=== PATIENT | female | born 1990 | race Caucasian/White ===

== ENCOUNTER 2016-09-16 09:51 | Emergency (ER) | payer OTHER ==
[2016-09-16 10:14] VITALS: BP 118/65; PULSE 77; TEMP 98; BMI 24.7
--- NOTE | 2016-09-16 10:27 | PDOC ---
History of Present Illness - General Chief Complaint: Urinary Problem Stated Complaint: PAIN Time Seen by Provider: 09/16/16 10:25 History Source: Patient Exam Limitations: No Limitations - History of Present Illness Travel History: No Initial Comments: 09/16/16 10:27 Patient came for evaluation of pain and burning with urine 3 days Timing/Duration: reports: getting worse Quality: reports: mild, moderate, aching Abdominal Pain Onset Location: reports: suprapubic Aggravating Factors: improves with: None Past History - Travel Traveled outside of the country in the last 30 days: No Close contact w/someone who was outside of country & ill: No - Past Medical History Allergies/Adverse Reactions: Allergies Allergy/AdvReac Type Severity Reaction Status Date / Time No Known Allergies Allergy Verified 09/16/16 10:10 Home Medications: Ambulatory Orders Nitrofurantoin Macrocrystal [Macrodantin -] 100 mg PO BID #14 capsule 09/16/16 Other medical history: DENIES. - Psycho/Social/Smoking Cessation Hx Anxiety: No Suicidal Ideation: No Smoking Status: No Smoking History: Current every day smoker Have you smoked in the past 12 months: Yes Number of Cigarettes Smoked Daily: 10 Information on smoking cessation initiated: No Hx Alcohol Use: No Drug/Substance Use Hx: No Substance Use Type: None Review of Systems - Review of Systems Able to Perform ROS?: Yes Is the patient limited Montenegrin proficient: Yes Constitutional: Yes: Symptoms Reported, See HPI, Malaise HEENTM: Yes: See HPI. No: Symptoms Reported Respiratory: No: Symptoms reported : Yes: Symptoms Reported, See HPI, Burning, Dysuria, Frequency Musculoskeletal: No: Symptoms Reported Integumentary: No: Symptoms Reported All Other Systems: Reviewed and Negative *Physical Exam - Vital Signs Last Vital Signs Temp Pulse Resp BP Pulse Ox 98 F 77 19 118/65 99 09/16/16 10:11 09/16/16 10:11 09/16/16 10:11 09/16/16 10:11 09/16/16 10:11 - Physical Exam General Appearance: Yes: Nourished, Appropriately Dressed, Apparent Distress HEENT: positive: JESSICA, Normal ENT Inspection, TMs Normal, Pharynx Normal Neck: positive: Supple. negative: Lymphadenopathy (R), Lymphadenopathy (L) Respiratory/Chest: positive: Lungs Clear, Normal Breath Sounds Gastrointestinal/Abdominal: positive: Tender, Soft, Distended. 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 NML intact, Fully Oriented, Alert, Normal Mood/ Affect, Normal Response, Motor Strength 5/5 *DC/Admit/Observation/Transfer Diagnosis at time of Disposition: UTI (urinary tract infection) Qualifiers: Urinary tract infection type: acute cystitis Hematuria presence: without hematuria Qualified Code(s): N30.00 - Acute cystitis without hematuria - Discharge Dispostion Disposition: HOME Condition at time of disposition: Stable Admit: No - Prescriptions Prescriptions: Nitrofurantoin Macrocrystal [Macrodantin -] 100 mg PO BID #14 capsule - Referrals Referrals: Sydni Segura MD [Primary Care Provider] - - Patient Instructions Printed Discharge Instructions: DI for Urinary Tract Infection (UTI) Additional Instructions: Rest, drink lots of fluids: Teas, water, soups Avoid contact with others until fevers and symptoms resolved Lots of handwashing and good hygiene Continue [id number] medications for symptomatic relief Tylenol or Motrin for fever and pain Continue all of antibiotics until completed Followup with private physician in one week for repeat urinalysis/reevaluation Return to emergency department for worsened symptoms, fevers, dehydration - Post Discharge Activity Work/School Note: Back to Work
[2016-09-16 10:47] LABS: URINE APPEARANCE SLCLOUDY; URINE BILIRUBIN NEGATIVE (NEGATIVE); URINE COLOR LTYELLOW; URINE GLUCOSE (UA) NEGATIVE (NEGATIVE); URINE KETONE NEGATIVE (NEGATIVE); URINE NITRITE NEGATIVE (NEGATIVE); URINE PROTEIN NEGATIVE (NEGATIVE); URINE UROBILINOGEN NEGATIVE E.U./dl (0.2-1.0)
[2016-09-16 10:49] LABS: URINE BLOOD 2+ (NEGATIVE); URINE LEUK ESTERASE 2+ (NEGATIVE)
[2016-09-16 10:58] LABS: URINE BACTERIA RARE /hpf (NONE SEEN); URINE MUCUS RARE; URINE RBC 4 /hpf (0-3); URINE WBC 92 /hpf (3-5)
[2016-09-16] MEDS ORDERED: NITROFURANTOIN MACROCRYSTAL 50 MG CAPSULE (FP) ONE (11:00)
[2016-09-16] MEDS ORDERED: NITROFURANTOIN MACROCRYSTAL 50 MG CAPSULE (FP) PO SCH (11:00)
== END 2016-09-16 11:03 | disposition home or self-care (01) ==
LOC: EDBD → JERFT 09:51
DX: N30.00 Acute cystitis without hematuria (principal); F17.210 Nicotine dependence, cigarettes, uncomplicated
CPT/HCPCS: 81003; 81015; 84703; 87086; 87186; 99281-25

== ENCOUNTER 2016-10-30 12:12 | Day surgery (SDC) | payer OTHER ==
[2016-10-27 14:58] VITALS: BMI 23.0
[2016-10-30] MEDS ORDERED: BUPIVACAINE HCL/PF 0.5% (5MG/ML) 10 ML VIAL ONE (13:18)
[2016-10-30] MEDS ORDERED: ROCURONIUM BROMIDE 50 MG/5 ML VIAL ONE (13:43)
[2016-10-30] MEDS ORDERED: DEXAMETHASONE SOD PHOSPHATE 4 MG/1 ML VIAL ONE ×2 (13:43→14:19)
[2016-10-30] MEDS ORDERED: LIDOCAINE HCL 2% JELLY (5 ML/TUBE) ONE (13:43)
[2016-10-30] MEDS ORDERED: MIDAZOLAM HCL 2 MG/2 ML SINGLE DOSE VIAL ONE (13:43)
[2016-10-30] MEDS ORDERED: LIDOCAINE HCL/PF 2% SDV 5ML VIAL ONE (13:43)
[2016-10-30] MEDS ORDERED: ONDANSETRON 4 MG/2 ML VIAL ONE (13:43)
[2016-10-30] MEDS ORDERED: ELECTROLYTE-148 SOLN 1,000 ML IV SCH (14:15)
[2016-10-30] MEDS ORDERED: IBUPROFEN 800 MG/8 ML IJ IVPB PRN (14:15)
[2016-10-30] MEDS ORDERED: oxyCODONE HCL 5 MG TABLET PO PRN (14:15)
[2016-10-30] MEDS ORDERED: IBUPROFEN 600 MG TABLET (FP) PO PRN (14:15)
[2016-10-30] MEDS ORDERED: ONDANSETRON 4 MG/2 ML VIAL IVPB PRN (14:15)
--- NOTE | 2016-10-30 14:15 | HP ---
Past Medical History - Primary Care Physician PCP:: Partha Otoole - Admission Chief Complaint: voluntary sterlization History of Present Illness: 26 yo f with 2 previous c/s requesting repeat c/s ,rba discussed , aware risk of ectopic and failure risk History Source: Patient Limitations to Obtaining History: No Limitations - Past Medical History ...: 2 ...Para: 2 - Past Surgical History Past Surgical History: Yes: Hx Myomectomy: No Hx Transabdominal Cerclage: No - Smoking History Smoking history: Current every day smoker Have you smoked in the past 12 months: Yes Aproximately how many cigarettes per day: 10 - Alcohol/Substance Use Hx Alcohol Use: No - Social History History of Recent Travel: No Home Medications - Allergies Allergies/Adverse Reactions: Allergies Allergy/AdvReac Type Severity Reaction Status Date / Time No Known Allergies Allergy Verified 10/27/16 14:59 - Home Medications Home Medications: Ambulatory Orders No Known Home Medication 1 tab PO ONCE 10/27/16 Review of Systems - Review of Systems Constitutional: reports: No Symptoms Eyes: reports: No Symptoms HENT: reports: No Symptoms Neck: reports: No Symptoms Cardiovascular: reports: No Symptoms Respiratory: reports: No Symptoms Gastrointestinal: reports: No Symptoms Genitourinary: reports: No Symptoms Breasts: reports: No Symptoms Reported Musculoskeletal: reports: No Symptoms Integumentary: reports: No Symptoms Neurological: reports: No Symptoms Endocrine: reports: No Symptoms Hematology/Lymphatic: reports: No Symptoms Psychiatric: reports: No Symptoms 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: Vital Signs Temperature Pulse Rate 68 10/30/16 13:06 Respiratory Rate 18 10/30/16 13:06 Blood Pressure 108/70 10/30/16 13:06 O2 Sat by Pulse Oximetry (%) 100 10/30/16 13:06 Constitutional: Yes: Well Nourished, No Distress, Calm Eyes: Yes: WNL, Conjunctiva Clear, EOM Intact HENT: Yes: WNL, Atraumatic, Normocephalic Neck: Yes: WNL, Supple, Trachea Midline Cardiovascular: Yes: WNL, Regular Rate and Rhythm Respiratory: Yes: WNL, Regular, CTA Bilaterally Gastrointestinal: Yes: WNL ...Rectal Exam: Yes: WNL Renal/: Yes: WNL Pelvis: Yes: WNL External Genitalia: Yes: Normal Internal Exam Deferred: No Vaginal Exam: Yes: Normal Cervix: Yes: Normal Adnexa: Not Palpable: Left, Right Breast(s): Yes: WNL Musculoskeletal: Yes: WNL Extremities: Yes: WNL Edema: No Integumentary: Yes: WNL Neurological: Yes: WNL, Alert, Oriented ...Motor Strength: WNL Psychiatric: Yes: WNL, Alert, Oriented Problem List - Problem (1) Sterilization Code(s): Z30.2 - ENCOUNTER FOR STERILIZATION Assessment/Plan laparoscopy tubal ligation ,possible laparotomy
[2016-10-30] MEDS ORDERED: ALBUTEROL SO4 6.7 GM HFA INHALER IH ONE (14:19)
[2016-10-30] MEDS ORDERED: NEOSTIGMINE METHYLSULFATE 0.5 MG/ML - 10 ML MDV ONE (14:36)
[2016-10-30] MEDS ORDERED: GLYCOPYRROLATE 0.2 MG/1 ML VIAL ONE (14:36)
[2016-10-30] MEDS ORDERED: LACTATED RINGERS SOLUTION 1,000 ML IV SCH (15:00)
[2016-10-30] MEDS ORDERED: KETOROLAC TROMETHAMINE 30 MG/1 ML VIAL IVPUSH PRN (15:01)
[2016-10-30] MEDS ORDERED: ALBUTEROL SO4 2.5/IPRATROPIUM 0.5 INH SOL 3 ML VIAL.NEB. NEB PRN (15:02)
[2016-10-30 17:02] VITALS: TEMP 98.1
--- NOTE | 2016-10-30 17:02 | CONSULT ---
Consultation: REQUESTING PROVIDER: CONSULT REQUEST: We have been asked to medically evaluate this patient for wheezing. HISTORY OF PRESENT ILLNESS: This is a 26-year-old woman who came in today for a bilateral tubal ligation. Post-op, while in the recovery room, she was noted to be wheezing. She says she felt short of breath, but after DuoNeb and use of an incentive spirometer, she is feeling better. She denies chest pain, palpitations , abdominal pain, nausea. She denies history of asthma. O2 saturation is 94-95% on room air. PAST MEDICAL HISTORY Denies PAST SURGICAL HISTORY x 2 ALLERGIES 3 Allergy/AdvReac Type Severity Reaction Status Date / Time No Known Allergies Allergy Verified 10/27/16 14:59 HOME MEDICATIONS 3 Medication Instructions Recorded No Known Home Medication 1 tab PO ONCE 10/27/16 Ibuprofen [Motrin -] 600 mg PO QID #28 tablet 10/30/16 REVIEW OF SYSTEMS: CONSTITUTIONAL: Absent: fever, chills, diaphoresis, generalized weakness, malaise, loss of appetite, weight change HEENT: Absent: rhinorrhea, nasal congestion, throat pain, throat swelling, difficulty swallowing, mouth swelling, ear pain, eye pain, visual changes CARDIOVASCULAR: Absent: chest pain, syncope, palpitations, lightheadedness, peripheral edema RESPIRATORY: Present: shortness of breath, wheezing. Absent: cough, dyspnea with exertion, orthopnea, stridor, hemoptysis GASTROINTESTINAL: Absent: abdominal pain, abdominal distension, nausea, vomiting , diarrhea, constipation, melena, hematochezia GENITOURINARY: Absent: dysuria, frequency, urgency, hesitancy, hematuria, flank pain MUSCULOSKELETAL: Absent: myalgia, arthralgia, joint swelling, back pain, neck pain SKIN: Absent: rash, itching, pallor HEMATOLOGIC/IMMUNOLOGIC: Absent: easy bleeding, easy bruising, lymphadenopathy, frequent infections ENDOCRINE: Absent: unexplained weight gain, unexplained weight loss, heat intolerance, cold intolerance NEUROLOGIC: Absent: headache, focal weakness or paresthesias, dizziness, unsteady gait, seizure, mental status changes, bladder or bowel incontinence PSYCHIATRIC: Absent: anxiety, depression, suicidal or homicidal ideation, hallucinations. PHYSICAL EXAMINATION Vital Signs - 24 hr 10/30/16 13:06 Pulse Rate 68 Respiratory 18 Rate Blood Pressure 108/70 O2 Sat by Pulse 100 Oximetry (%) GENERAL: Awake, alert, and fully oriented, in no acute distress. HEAD: Normal with no signs of trauma. EYES: Pupils equal, round and reactive to light, extraocular movements intact, sclerae anicteric, conjunctivae clear. EARS, NOSE, THROAT: Ears normal, nares patent, oropharynx clear without exudates. Moist mucous membranes. NECK: Normal range of motion, supple without lymphadenopathy, JVD, or masses. LUNGS: Breath sounds equal, scattered expiratory wheezes bilaterally. No accessory muscle use. HEART: Regular rate and rhythm, normal S1 and S2 without murmur, rub or gallop. ABDOMEN: Soft, nontender, not distended, normoactive bowel sounds, no guarding, no rebound, no masses. No hepatomegaly or splenomegaly. MUSCULOSKELETAL: Normal range of motion at all joints. No bony deformities or tenderness. No CVA tenderness. UPPER EXTREMITIES: 2+ pulses, warm, well-perfused. No cyanosis. No clubbing. Cap refill <2 seconds. No peripheral edema. LOWER EXTREMITIES: 2+ pulses, warm, well-perfused. No calf tenderness. No peripheral edema. NEUROLOGICAL: Cranial nerves II-XII intact. Normal speech. Gait not observed. PSYCHIATRIC: Cooperative. Good eye contact. Appropriate mood and affect. SKIN: Warm, dry, normal turgor, no rashes or lesions noted. Laboratory Results - last 24 hr 10/30/16 12:30 Urine HCG, Qual Negative Active Medications Generic Name Dose Route Start Last Admin Trade Name Freq PRN Reason Stop Dose Admin Albuterol/Ipratropium 1 amp 10/30/16 15:02 10/30/16 15:00 Duoneb - NEB 1 amp Q4H PRN Administration SHORTNESS OF BREATH Fentanyl 25 mcg 10/30/16 15:00 10/30/16 15:10 Sublimaze Injection - IVPUSH 11/02/16 15:01 25 mcg [id number] PRN Administration PAIN Parenteral Electrolytes 1,000 mls @ 125 mls/hr 10/30/16 14:15 Plasma-Lyte 148 - IV ASDIR ANDERSON Lactated Ringer's 1,000 mls @ 125 mls/hr 10/30/16 15:00 Lactated Ringers Solution IV ASDIR ANDERSON Ibuprofen 600 mg 10/30/16 14:15 Motrin - PO Q6H PRN FEVER Ibuprofen 800 mg 10/30/16 14:15 Caldolor Injection - IVPB Q6H PRN PAIN Ketorolac Tromethamine 30 mg 10/30/16 15:01 10/30/16 15:24 Toradol Injection - IVPUSH 10/30/16 20:00 30 mg ONCE PRN Administration PAIN Ondansetron HCl 4 mg 10/30/16 14:15 Zofran Injection IVPB Q6H PRN NAUSEA Oxycodone HCl 5 mg 10/30/16 14:15 Roxicodone - PO Q4H PRN PAIN ASSESSMENT/PLAN: This is a 26-year-old woman with no significant past medical history who developed wheezing and shortness of breath post-op after bilateral tubal ligation. 1. Shortness of breath, wheezing post-op - Probable bronchospasm - CXR shows LLL atelectasis - Feels better after DuoNeb - Continue incentive spirometer - OK for discharge - return to ER for fever, shortness of breath, increased wheezing
[2016-10-30] MEDS ORDERED: oxyCODONE HCL 5 MG TABLET ONE (17:55)
[2016-10-30 18:49] VITALS: BP 118/70; PULSE 100
--- NOTE | 2016-10-31 18:44 | OP ---
DATE OF OPERATION: 10/30/2016 PREOPERATIVE DIAGNOSIS: Voluntary sterilization. POSTOPERATIVE DIAGNOSIS: Voluntary sterilization. PROCEDURE: Laparoscopic bilateral tubal cauterization. SURGEON: Partha Otoole M.D. ANESTHESIA: General. ESTIMATED BLOOD LOSS: 10 mL. DESCRIPTION OF PROCEDURE: Patient was taken to operating room where with adequate general anesthesia, examination under anesthesia revealed external genitalia to be normal, vagina was normal, cervix was clean, uterus normal size, adnexa no masses palpable. Then with the weighted speculum in the vagina, anterior lip of cervix was grasped with a single hook tenaculum, and Hulka was introduced into the uterine cavity for manipulation. Then Diaz was inserted. Abdomen was prepped and draped. In dorsal lithotomy position small incision was made through the umbilical area, Veress needle was introduced, pneumoperitoneum established, and then a 5-mm trocar was introduced through the umbilical area, and then the scope was introduced. Under direct vision, a 5-mm trocar was introduced through the suprapubic area. There were some omental adhesions to the anterior abdominal wall. Uterus was normal, both ovaries were normal, both tubes were normal. Upper abdomen was checked, no other abnormalities were seen. Then with the bipolar cautery, right tube was cauterized in 3 portions 2 cm apart, the same procedure repeated for opposite tube. Visualization of both tubes showed adequate cauterization and no bleeding. Then abdomen was emptied of all the gases, instruments withdrawn, and suprapubic and infraumbilical incisions were closed with interrupted suture of 3-0 Biosyn. Patient tolerated procedure well, left the OR in good condition. PARTHA OTOOLE M.D. [id number]
== END 2016-10-30 18:45 | disposition home or self-care (01) ==
LOC: EDBD → JASU-SURG 12:12
PROVIDERS: ATTEND Obstetrics & Gynecology
PROC: 0U574ZZ Destruction of Bilateral Fallopian Tubes, Percutaneous Endoscopic Approach (ICD-10-PCS; principal; 2016-10-30 14:00)
DX: Z30.2 Encounter for sterilization (principal); R06.02 Shortness of breath; R06.2 Wheezing
CPT/HCPCS: 71010-TC; 84703; 94760

== ENCOUNTER 2018-10-03 14:55 | Emergency (ER) | payer OTHER ==
[2018-10-03 15:11] VITALS: BP 124/72; PULSE 76; TEMP 97.9; BMI 25.8
--- NOTE | 2018-10-03 15:59 | PDOC ---
History of Present Illness - General Chief Complaint: Sore Throat Stated Complaint: SORE THROAT Time Seen by Provider: 10/03/18 15:17 History Source: Patient Exam Limitations: Clinical Condition - History of Present Illness Initial Comments: 10/03/18 15:55 Patient with no significant past medical history present with complaint of three -day history of sore throat and dry mouth. Patient denies fever, chills, cough, body aches. Patient endorses nasal congestion. Denies any other symptoms Timing/Duration: other (3 days) Past History - Past Medical History Allergies/Adverse Reactions: Allergies Allergy/AdvReac Type Severity Reaction Status Date / Time No Known Allergies Allergy Verified 10/03/18 15:11 Home Medications: Ambulatory Orders Ipratropium [place] 2 spray NS BID PRN #1 spray 10/03/18 Methylprednisolone [Medrol Dose Edson] 4 mg PO ASDIR #21 tablet 10/03/18 Anemia: No Asthma: No Cancer: No Cardiac Disorders: No CVA: No COPD: No CHF: No Dementia: No Diabetes: No GI Disorders: No Disorders: No HTN: No Hypercholesterolemia: No Liver Disease: No Seizures: No Thyroid Disease: No - Suicide/Smoking/Psychosocial Hx Smoking Status: No Smoking History: Never smoked Have you smoked in the past 12 months: Yes Number of Cigarettes Smoked Daily: 10 'Breaking Loose' booklet given: 10/30/16 Hx Alcohol Use: No Drug/Substance Use Hx: No Substance Use Type: None Hx Substance Use Treatment: No Review of Systems - Review of Systems Able to Perform ROS?: Yes Is the patient limited Mongolian proficient: No Constitutional: No: Chills, Fever, Malaise HEENTM: Yes: Symptoms Reported, See HPI, Nose Congestion, Throat Pain. No: Eye Pain, Blurred Vision, Tearing, Recent change in vision, Double Vision, Cataracts , Ear Pain, Ocular Prothesis, Ear Discharge, Nose Pain, Tinnitus, Nose Bleeding , Hearing Loss, Throat Swelling, Mouth Pain, Dental Problems, Difficulty Swallowing, Mouth Swelling, Other Respiratory: No: Symptoms reported, See HPI, Cough, Orthopnea, Shortness of Breath, SOB with Exertion, SOB at Rest, Stridor, Wheezing, Productive cough, Hemoptysis, Other Cardiac (ROS): No: Symptoms Reported, See HPI, Chest Pain, Edema, Irregular Heart Rate, Lightheadedness, Palpitations, Syncope, Chest Tightness, Other ABD/GI: No: Constipated, Diarrhea, Nausea, Vomiting, Abdominal cramping All Other Systems: Reviewed and Negative *Physical Exam - Vital Signs Last Vital Signs Temp Pulse Resp BP Pulse Ox 97.9 F 76 18 124/72 99 10/03/18 15:08 10/03/18 15:08 10/03/18 15:08 10/03/18 15:08 10/03/18 15:08 - Physical Exam Comments: 10/03/18 15:56 GENERAL: Well developed, well nourished. Awake and alert. No acute distress. HEENT: Normocephalic, atraumatic. PERRLA, EOMI. No conjunctival pallor. Sclera are non-icteric. Moist mucous membranes. Oropharynx is clear. NECK: Supple. Full ROM. CARDIOVASCULAR: Regular rate and rhythm. No murmurs, rubs, or gallops. Distal pulses are 2+ and symmetric. PULMONARY: No evidence of respiratory distress. Lungs clear to auscultation bilaterally. No wheezing, rales or rhonchi. ABDOMINAL: Soft. Non-tender. Non-distended. No rebound or guarding. No organomegaly. Normoactive bowel sounds. MUSCULOSKELETAL Normal range of motion at all joints. EXTREMITIES: No cyanosis. No clubbing. No edema. SKIN: Warm and dry. Normal capillary refill. No rashes. No jaundice. NEUROLOGICAL: Alert, awake, appropriate. Gait is normal without ataxia. PSYCHIATRIC: Cooperative. Good eye contact. Appropriate mood General Appearance: Yes: Nourished, Appropriately Dressed. No: Apparent Distress Moderate Sedation - Procedure Monitoring Vital Signs: Procedure Monitoring Vital Signs Temperature 97.9 F 10/03/18 15:08 Pulse Rate 76 10/03/18 15:08 Respiratory Rate 18 10/03/18 15:08 Blood Pressure 124/72 10/03/18 15:08 O2 Sat by Pulse Oximetry (%) 99 10/03/18 15:08 Medical Decision Making - Medical Decision Making 10/03/18 15:58 Patient with no significant past medical history present with complaint of three -day history of sore throat and dry mouth with no other symptoms. No pharyngeal erythema or any exam. mild left anterior cervical lymphadenitis. Symptoms likely pharyngitis from postnasal drip. Rapid strep test ordered to rule out strep pharyngitis. Patient will be treated with symptomatic management if negative strep 10/03/18 16:16 rapid strep negative. Patient stable for discharge with symptomatic management and ENT follow-up *DC/Admit/Observation/Transfer Diagnosis at time of Disposition: Lymphadenitis Pharyngitis Qualifiers: Pharyngitis/tonsillitis etiology: unspecified etiology Qualified Code(s): J02.9 - Acute pharyngitis, unspecified - Discharge Dispostion Disposition: HOME Condition at time of disposition: Stable Decision to Admit order: No - Prescriptions Prescriptions: Ipratropium [place] 2 spray NS BID PRN #1 spray PRN Reason: nasal congestion Methylprednisolone [Medrol Dose Edson] 4 mg PO ASDIR #21 tablet - Referrals Referrals: Israel Handy MD [Staff Physician] - - Patient Instructions Printed Discharge Instructions: DI for Pharyngitis/Tonsillopharyngitis -- Adult Additional Instructions: Your strep test was negative. Take medication as prescribed. Increase fluid intake. Follow-up referred ENT if symptoms persist for more than 4 days. - Post Discharge Activity
== END 2018-10-03 16:16 | disposition home or self-care (01) ==
LOC: JERFT 14:55
DX: J02.9 Acute pharyngitis, unspecified (principal); I88.8 Other nonspecific lymphadenitis
CPT/HCPCS: 87070; 87880; 99281-25

== ENCOUNTER 2019-01-13 09:18 | Emergency (ER) | payer OTHER | END 2019-01-13 12:50 | disposition home or self-care (01) | LOC: JER 09:18 ==

== ENCOUNTER 2019-02-06 11:48 | Emergency (ER) | payer OTHER ==
[2019-02-06 11:54] VITALS: BP 129/82; PULSE 89; TEMP 98; BMI 26.0
--- NOTE | 2019-02-06 12:19 | PDOC ---
History of Present Illness - General Chief Complaint: Sore Throat Stated Complaint: SICK Time Seen by Provider: 02/06/19 11:56 History Source: Patient Exam Limitations: No Limitations Past History - Past Medical History Allergies/Adverse Reactions: Allergies Allergy/AdvReac Type Severity Reaction Status Date / Time No Known Allergies Allergy Verified 02/06/19 11:54 Home Medications: Ambulatory Orders NK [No Known Home Medication] 01/13/19 Anemia: No Asthma: No Cancer: No Cardiac Disorders: No CVA: No COPD: No CHF: No Dementia: No Diabetes: No GI Disorders: No Disorders: No HTN: No Hypercholesterolemia: No Liver Disease: No Seizures: No Thyroid Disease: No - Suicide/Smoking/Psychosocial Hx Smoking Status: No Smoking History: Never smoked Have you smoked in the past 12 months: Yes Number of Cigarettes Smoked Daily: 10 'Breaking Loose' booklet given: 10/30/16 Hx Alcohol Use: No Drug/Substance Use Hx: No Substance Use Type: None Hx Substance Use Treatment: No *Physical Exam - Vital Signs Last Vital Signs Temp Pulse Resp BP Pulse Ox 98 F 89 18 129/82 99 02/06/19 11:53 02/06/19 11:53 02/06/19 11:53 02/06/19 11:53 02/06/19 11:53 - Physical Exam General Appearance: No: Apparent Distress HEENT: positive: Normal Voice, Other (no evidence of erythroplakia, leukoplakia or candidiasis, no lesions noted along tongue). negative: Muffled/Hoarse voice , Pharyngeal Erythema, Tonsillar Exudate, Tonsillar Erythema Neck: negative: Lymphadenopathy (R), Lymphadenopathy (L) Respiratory/Chest: positive: Lungs Clear, Normal Breath Sounds. negative: Respiratory Distress Cardiovascular: positive: Regular Rhythm, Regular Rate, S1, S2. negative: Murmur Gastrointestinal/Abdominal: positive: Normal Bowel Sounds, Soft. negative: Tender, Distended, Guarding, Rebound Integumentary: positive: Normal Color. negative: Rash Neurologic: positive: Alert, Normal Mood/Affect Medical Decision Making - Medical Decision Making 28 y/o F with no sig pmh, smoker (around 10 cigs/day) presents with R sided throat pain and noting few bumps along R ride of tongue x 1 week. Denies fever, cough, rhinorrhea, nasal congestion, sob, cp, abd pain, n/v/d. Has not tried anything for pain No sign of strep No evidence of erythroplakia, leukoplakia, candidiasis Stable for dc 02/06/19 12:15 *DC/Admit/Observation/Transfer Diagnosis at time of Disposition: Throat pain - Discharge Dispostion Disposition: HOME Condition at time of disposition: Stable Decision to Admit order: No - Referrals - Patient Instructions Printed Discharge Instructions: DI for Viral Pharyngitis Additional Instructions: Thank you for choosing [facility]. It was a pleasure taking care of you. Recommend salt water gargles Take Motrin 600 mg every 6 hours as needed for pain Would recommend quitting smoking Follow-up with your doctor in 2 days Return to the Emergency Department if your symptoms worsen or persist or have other concerning symptoms. - Post Discharge Activity
== END 2019-02-06 12:21 | disposition home or self-care (01) ==
LOC: JERFT 11:48
DX: J02.9 Acute pharyngitis, unspecified (principal); B97.89 Other viral agents as the cause of diseases classified elsewhere
CPT/HCPCS: 99281-25

== ENCOUNTER 2019-07-19 08:14 | Emergency (ER) | payer OTHER ==
[2019-07-19 08:29] VITALS: BP 117/69; PULSE 112; TEMP 97.9; BMI 27.4
--- NOTE | 2019-07-19 08:54 | PDOC ---
History of Present Illness - General Chief Complaint: Pain Stated Complaint: STOMACH PAIN Time Seen by Provider: 07/19/19 08:33 History Source: Patient - History of Present Illness Timing/Duration: reports: constant Quality: reports: severe Abdominal Pain Onset Location: reports: LUQ, epigastric Past History - Past Medical History Allergies/Adverse Reactions: Allergies Allergy/AdvReac Type Severity Reaction Status Date / Time No Known Allergies Allergy Verified 07/19/19 08:19 Home Medications: Ambulatory Orders Famotidine [Pepcid] 20 mg PO BID #14 tablet 07/19/19 Mag Hydrox/Al Hydrox/Simeth [Mylanta Suspension -] 30 ml PO Q6H #1 bottle Anemia: No Asthma: No Cancer: No Cardiac Disorders: No CVA: No COPD: No CHF: No Dementia: No Diabetes: No GI Disorders: No Disorders: No HTN: No Hypercholesterolemia: No Liver Disease: No Seizures: No Thyroid Disease: No - Immunization History Immunization Up to Date: Yes - Psycho Social/Smoking Cessation Hx Smoking Status: No Smoking History: Current every day smoker Have you smoked in the past 12 months: Yes Number of Cigarettes Smoked Daily: 5 Information on smoking cessation initiated: Yes 'Breaking Loose' booklet given: 10/30/16 Hx Alcohol Use: No Drug/Substance Use Hx: No Substance Use Type: None Hx Substance Use Treatment: No Review of Systems - Review of Systems Constitutional: No: Chills, Fever Respiratory: No: Shortness of Breath Cardiac (ROS): No: Chest Pain ABD/GI: No: Blood Streaked Bowels, Constipated, Diarrhea, Nausea, Rectal Bleeding, Vomiting, Tarry Stools : No: Burning, Dysuria, Discharge, Flank Pain, Hematuria *Physical Exam - Vital Signs Last Vital Signs Temp Pulse Resp BP Pulse Ox 97.9 F 112 H 17 117/69 99 07/19/19 08:16 07/19/19 08:16 07/19/19 08:16 07/19/19 08:16 07/19/19 08:16 - Physical Exam General Appearance: Yes: Appropriately Dressed. No: Apparent Distress HEENT: positive: Normal Voice Neck: positive: Supple Respiratory/Chest: positive: Lungs Clear, Normal Breath Sounds. negative: Respiratory Distress Cardiovascular: positive: Regular Rate, S1, S2 Gastrointestinal/Abdominal: positive: Normal Bowel Sounds, Tender (sig ttp to epigatrium, NT over RUQ or RLQ), Soft. negative: Distended, Guarding, Rebound Musculoskeletal: negative: CVA Tenderness Integumentary: positive: Dry, Warm Neurologic: positive: Fully Oriented, Alert, Normal Mood/Affect ED Treatment Course - LABORATORY CBC & Chemistry Diagram: 07/19/19 09:44 07/19/19 09:44 Medical Decision Making - Medical Decision Making 07/19/19 08:52 29-year-old female, denies any past medical history, here with constant severe epigastric pain radiating to LUQ since yesterday. Unable to describe pain, w/ no exacerbating factors and no a/w food. Took Motrin and used Citroma laxative with no relief. No excessive belching, nausea, vomiting, change in bowel movements, melena, BRBPR, dysuria, fever or chills. Denies history of similar pain. Denies excessive alcohol or NSAID use otherwise. see exam Possible gastritis/GERD, less likely biliary, pancreatitis, uti/pyelo or appy -trial GI cocktail -labs -?US -reassess 07/19/19 10:50 Labs and UA unremarkable. On reassessment patient reports feeling significantly better and feels well enough to go home. Was able to tolerate po w / rpt HR 66. Will dc with meds and give GI referral as needed Discharge - Discharge Information Problems reviewed: Yes Clinical Impression/Diagnosis: Epigastric pain Condition: Good Disposition: HOME - Additional Discharge Information Prescriptions: Famotidine [Pepcid] 20 mg PO BID #14 tablet Mag Hydrox/Al Hydrox/Simeth [Mylanta Suspension -] 30 ml PO Q6H #1 bottle - Follow up/Referral Referrals: Jerry Quiroga MD [Staff Physician] - - Patient Discharge Instructions Patient Printed Discharge Instructions: Gastritis Additional Instructions: The cause of your symptoms is unclear but may be due to gastritis or GERD. Please take meds as directed and if symptoms persist and/or worsen return to the ED You were also given referral to a program or project administrator, to follow-up as needed - Post Discharge Activity Work/Back to School Note: Back to Work
[2019-07-19] MEDS ORDERED: SODIUM CHLORIDE 1,000 ML IV STA (09:04)
[2019-07-19] MEDS ORDERED: MAG HYDROX/AL HYDROX/SIMETH 30 ML UNIT-DOSE CUP PO ONE (09:04)
[2019-07-19] MEDS ORDERED: FAMOTIDINE 20 MG/50 ML IVPB 20 MG/50 ML MG IVPB ONE ×2 (09:04→09:31)
[2019-07-19] MEDS ORDERED: MAG HYDROX/AL HYDROX/SIMETH 30 ML UNIT-DOSE CUP ONE (09:30)
[2019-07-19] MEDS ORDERED: PT OWN MED DRAWER 7, Y5N ONE (09:31)
[2019-07-19 10:08] LABS: BASO % 0.3 % (0-2.0); EOS % 1.2 % (0-4.5); HEMATOCRIT 39.8 % (32.4-45.2); HEMOGLOBIN 13.2 GM/dL (10.7-15.3); MCHC 33.3 g/dl (32.0-36.0); MEAN CELL VOLUME 93.1 fl (80-96); MONO % 5.9 % (3.8-10.2); NEUT % 73.6 % (42.8-82.8); PLATELET COUNT 258 K/MM3 (134-434); RBC 4.27 M/mm3 (3.60-5.2); WHITE BLOOD COUNT 10.4 K/mm3 (4.0-10.0)
[2019-07-19 10:17] LABS: EPI CELLS 2.1 /HPF (0-5/HPF); HYALINE CASTS 0 /lpf (0-8); URINE APPEARANCE CLEAR; URINE BACTERIA 118.9 /hpf (NEGATIVE); URINE BILIRUBIN NEGATIVE (NEGATIVE); URINE COLOR YELLOW; URINE GLUCOSE (UA) NEGATIVE (NEGATIVE); URINE KETONE NEGATIVE (NEGATIVE); URINE LEUK ESTERASE NEGATIVE (NEGATIVE); URINE NITRITE NEGATIVE (NEGATIVE); URINE PROTEIN NEGATIVE (NEGATIVE); URINE RBC 6 /hpf (0-4); URINE UROBILINOGEN 0.2 mg/dL (0.2-1.0); URINE WBC 1 /hpf (0-5)
[2019-07-19 10:30] LABS: ALBUMIN 3.7 g/dl (3.4-5.0); BILIRUBIN,TOTAL 0.8 mg/dL (0.2-1); BLOOD UREA NITROGEN 12.8 mg/dL (7-18); CALCIUM 8.8 mg/dL (8.5-10.1); CREATININE 0.6 mg/dL (0.55-1.3); POTASSIUM 4.8 mmol/L (3.5-5.1); TOT PROT 7.4 g/dl (6.4-8.2)
== END 2019-07-19 11:00 | disposition home or self-care (01) ==
LOC: JER 08:14
PROC: 3E033GC Introduction of Other Therapeutic Substance into Peripheral Vein, Percutaneous Approach (ICD-10-PCS; principal; 2019-07-19)
DX: R10.13 Epigastric pain (principal); F17.210 Nicotine dependence, cigarettes, uncomplicated
CPT/HCPCS: 36415; 80053; 81003; 83690; 84703; 85025; 96365; 99282-25; J7030

== ENCOUNTER 2021-10-24 08:39 | Emergency (ER) | payer OTHER ==
[2021-10-24 08:45] VITALS: BP 124/76; PULSE 85; TEMP 97.8; BMI 27.0
[2021-10-24] MEDS ORDERED: IBUPROFEN 400 MG TABLET (FP) PO ONE ×2 (09:11→09:24)
[2021-10-24 09:48] LABS: HCG,QUALITATIVE URINE Negative
[2021-10-24 09:49] LABS: EPI CELLS 17 /uL (0-25.1); HYALINE CASTS 1 /uL (0-3.1); PH,URINE 5.5 (5.0-8.0); URINE APPEARANCE CLEAR; URINE BACTERIA 983 /uL (0-1359); URINE BILIRUBIN NEGATIVE (NEGATIVE); URINE COLOR YELLOW; URINE GLUCOSE (UA) NEGATIVE (NEGATIVE); URINE KETONE NEGATIVE (NEGATIVE); URINE LEUK ESTERASE NEGATIVE (NEGATIVE); URINE NITRITE NEGATIVE (NEGATIVE); URINE PROTEIN NEGATIVE (NEGATIVE); URINE RBC 53 /uL (0-23.9); URINE UROBILINOGEN 0.2 mg/dL (0.2-1.0); URINE WBC 5 /uL (0-25.8)
== END 2021-10-24 10:25 | disposition home or self-care (01) ==
LOC: JER 08:39
DX: M54.50 Low back pain, unspecified (principal)
CPT/HCPCS: 36415; 81003; 84703; 87086; 87491; 87591; 99283-25

== ENCOUNTER 2022-02-28 07:44 | Emergency (ER) | payer OTHER ==
[2022-02-28 08:10] VITALS: BP 115/75; PULSE 68; TEMP 98.2; BMI 25.7
[2022-02-28] MEDS ORDERED: KETOROLAC TROMETHAMINE 30 MG/1 ML VIAL IM ONE (08:52)
[2022-02-28] MEDS ORDERED: KETOROLAC TROMETHAMINE 30 MG/1 ML VIAL ONE (08:58)
[2022-02-28 09:47] LABS: EPI CELLS >36 /uL (0-25.1); HCG,QUALITATIVE URINE Negative; HYALINE CASTS 3 /uL (0-3.1); URINE APPEARANCE CLEAR; URINE BACTERIA 2204 /uL (0-1359); URINE BILIRUBIN NEGATIVE (NEGATIVE); URINE COLOR YELLOW; URINE GLUCOSE (UA) NEGATIVE (NEGATIVE); URINE KETONE NEGATIVE (NEGATIVE); URINE LEUK ESTERASE NEGATIVE (NEGATIVE); URINE NITRITE NEGATIVE (NEGATIVE); URINE PROTEIN NEGATIVE (NEGATIVE); URINE UROBILINOGEN 0.2 mg/dL (0.2-1.0); URINE WBC 30 /uL (0-25.8)
[2022-02-28 10:04] LABS: URINE RBC 87.9 /uL (0-23.9)
== END 2022-02-28 09:49 | disposition home or self-care (01) ==
LOC: JERFT 07:44 → JER 07:44 → JERFT 09:49
PROC: 3E0233Z Introduction of Anti-inflammatory into Muscle, Percutaneous Approach (ICD-10-PCS; principal; 2022-02-28)
DX: M54.6 Pain in thoracic spine (principal)
CPT/HCPCS: 71046-TC-FY; 81003; 84703; 87086; 93005; 93010; 99285-25

== ENCOUNTER 2022-06-04 09:55 | Emergency (ER) | payer OTHER ==
[2022-06-04 11:04] VITALS: BP 124/80; PULSE 95; RESP 20; TEMP 98.3; BMI 26.4
== END 2022-06-04 11:27 | disposition home or self-care (01) ==
LOC: JER 09:55
DX: B34.9 Viral infection, unspecified (principal)
CPT/HCPCS: 0241U-QW; 99283-25

== ENCOUNTER 2023-04-28 08:12 | Emergency (ER) | payer OTHER ==
[2023-04-28 08:18] VITALS: RESP 20; BMI 28.3
[2023-04-28] MEDS ORDERED: ACETAMINOPHEN 325 MG TABLET (FP) PO ONE (09:52)
[2023-04-28] MEDS ORDERED: ACETAMINOPHEN 325 MG TABLET (FP) ONE (10:32)
[2023-04-28 11:09] LABS: BASO % 0.2 % (0-2.0); EOS % 3.6 % (0-4.5); HEMATOCRIT 39.4 % (32.4-45.2); HEMOGLOBIN 13.6 GM/dL (10.7-15.3); LYMPH % 35.6 % (8-40); MCH 31.7 pg (25.7-33.7); MCHC 34.6 g/dl (32.0-36.0); MEAN CELL VOLUME 91.7 fl (80-96); MEAN PLT VOLUME 7.4 fl (7.5-11.1); MONO % 6.7 % (3.8-10.2); NEUT % 53.9 % (42.8-82.8); PLATELET COUNT 273 10^3/uL (134-434); RBC 4.29 M/mm3 (3.60-5.2); RDW 12.6 % (11.6-15.6); WHITE BLOOD COUNT 7.6 K/mm3 (4.0-10.0)
[2023-04-28 11:11] LABS: EPI CELLS 29 /uL (0-25.1); HYALINE CASTS 0 /uL (0-3.1); PH,URINE 6.5 (5.0-8.0); URINE APPEARANCE CLEAR; URINE BACTERIA 1004 /uL (0-1359); URINE BILIRUBIN NEGATIVE (NEGATIVE); URINE COLOR YELLOW; URINE GLUCOSE (UA) NEGATIVE (NEGATIVE); URINE KETONE NEGATIVE (NEGATIVE); URINE LEUK ESTERASE TRACE (NEGATIVE); URINE NITRITE NEGATIVE (NEGATIVE); URINE PROTEIN NEGATIVE (NEGATIVE); URINE RBC 141 /uL (0-23.9); URINE UROBILINOGEN 0.2 mg/dL (0.2-1.0); URINE WBC 12 /uL (0-25.8)
[2023-04-28 11:20] LABS: POTASSIUM 5.3 mmol/L (3.5-5.1)
[2023-04-28 11:22] LABS: CALCIUM 8.5 mg/dL (8.5-10.1)
[2023-04-28 11:23] LABS: ALBUMIN 3.7 g/dl (3.4-5.0); BLOOD UREA NITROGEN 7.5 mg/dL (7-18)
[2023-04-28 11:26] LABS: CREATININE 0.6 mg/dL (0.55-1.3)
[2023-04-28 11:27] LABS: BILIRUBIN,TOTAL 1.2 mg/dL (0.2-1); TOT PROT 7.4 g/dl (6.4-8.2)
[2023-04-28 14:07] VITALS: BP 128/82; PULSE 78; TEMP 98
== END 2023-04-28 14:08 | disposition home or self-care (01) ==
LOC: JER 08:12
DX: R10.9 Unspecified abdominal pain (principal); M54.6 Pain in thoracic spine; M54.50 Low back pain, unspecified; R35.0 Frequency of micturition
CPT/HCPCS: 36415; 80053; 81003; 84703; 85025; 87086; 99283-25